=== PATIENT | female | born 1945 | race Caucasian/White ===

== ENCOUNTER 2016-09-28 07:56 | Day surgery (SDC) | payer MEDICARE, OTHER ==
--- NOTE | ~2016-09-28 | EGD ---
EGD REPORT [facility] [address] [place] [id number] NAME: SARAHI FONTANA : [birth year] STATUS : REG [facility] [place] PAT#: [id number] AGE: 71 ADM/REG DATE : 09/28/16 MR#: [id number] REPORT SERV DATE: 09/28/16 DICTATED BY: ALTAGRACIA BLUM DATE: 09/28/16 REPORT STATUS : Draft TRANSCRIBED BY: [facility] DATE: 09/28/16 [facility] Center Patient Name: Sarahi Fontana Date of : 1945 Attending MD: ALTAGRACIA BLUM MD Procedure Date No Time: 09/28/2016 Procedure: Colonoscopy Indications: High risk colon cancer surveillance: Personal history of sessile serrated colon polyp (less than 10 mm in size) with no dysplasia; last exam 2013. Patient Profile: Informed consent was obtained from the patient by me prior to the procedure. Risks, benefits, and alternatives were discussed including the risk of bleeding, perforation, infection, reaction to medicine, missed lesion, and cardiopulmonary complications. Referring MD: ROBER MEDINA Medicines: Monitored Anesthesia Care Complications: No immediate complications. Procedure: Pre-Anesthesia Assessment: - ASA Grade Assessment: II - A patient with mild systemic disease. After I obtained informed consent, the scope was passed under direct vision. Throughout the procedure, the patient's blood pressure, pulse, and oxygen saturations were monitored continuously. The PCF [id number] was introduced through the anus and advanced to the cecum, identified by appendiceal orifice and ileocecal valve. The colonoscope was slowly withdrawn with careful examination all mucosal surfaces including specific attention around flexures and tip deflection behind folds; retroflexion performed in rectum. The colonoscopy was performed without difficulty. The patient tolerated the procedure well. The quality of the bowel preparation was adequate. The ileocecal valve, appendiceal orifice and rectum were photographed. Findings: A flat polyp was found in the rectum. The polyp was 5 mm in size. The polyp was removed with a cold biopsy forceps. Resection and retrieval were complete. External hemorrhoids were found, and they were mild. A few small-mouthed diverticula were found in the sigmoid colon. Impression: - One 5 mm polyp in the rectum. Resected and retrieved. - External hemorrhoids. EGD REPORT [address] [address] NAME: SARAHI FONTANA : [birth year] STATUS : REG [facility]#: [id number] AGE: 71 ADM/REG DATE : 09/28/16 MR#: [id number] REPORT SERV DATE: 09/28/16 DICTATED BY: ALTAGRACIA BLUM DATE: 09/28/16 REPORT STATUS : Draft TRANSCRIBED BY: [facility] [facility] DATE: 09/28/16 Recommendation: - Patient has a contact number available for emergencies. The signs and symptoms of potential delayed complications were discussed with the patient. Return to normal activities tomorrow. Written discharge instructions were provided to the patient. - Regular diet. - Continue present medications. - Await pathology results. - Repeat colonoscopy for surveillance based on pathology results. Procedure Code(s): --- Professional --- 43633, Colonoscopy, flexible, proximal to splenic flexure; with biopsy, single or multiple Diagnosis Code(s): --- Professional --- K62.1, Rectal polyp K64.4, Residual hemorrhoidal skin tags Z86.010, Personal history of colonic polyps CPT copyright 2013 [employer]. All rights reserved. The codes documented in this report are preliminary and upon infirmary attendant review may be revised to meet current compliance requirements. ALTAGRACIA BLUM MD 09/28/2016 10:27 AM This report has been signed electronically. Number of Addenda: 0 Note Initiated On: 09/28/2016 9:57 AM Scope Withdrawal Time 0 hours 12 minutes 31 seconds [id number] [id number]
[~2016-09-28 07:56] MED LIST: ATEN25 PO; LIPITOR10 PO; SYN.05 PO; SYN075 PO; VASOTEC5 PO; WELCHOL625 MG OR
== END 2016-09-28 23:59 | disposition home or self-care (01) ==
LOC: DMU 07:56
PROVIDERS: Internal Medicine Gastroenterology
PROC: 0DBP8ZX Excision of Rectum, Via Natural or Artificial Opening Endoscopic, Diagnostic (ICD-10-PCS; principal; 2016-09-28 09:00)
DX: K62.1 Rectal polyp (principal); K64.4 Residual hemorrhoidal skin tags; E78.00 Pure hypercholesterolemia, unspecified; M51.26 Other intervertebral disc displacement, lumbar region; G89.29 Other chronic pain; E03.9 Hypothyroidism, unspecified; I10 Essential (primary) hypertension; Z90.710 Acquired absence of both cervix and uterus; Z88.5 Allergy status to narcotic agent; Z79.899 Other long term (current) drug therapy; Z86.010 Personal history of colon polyps; Z90.49 Acquired absence of other specified parts of digestive tract; Z98.41 Cataract extraction status, right eye; Z98.42 Cataract extraction status, left eye; Z98.890 Other specified postprocedural states; Z90.89 Acquired absence of other organs
CPT/HCPCS: 88305